=== PATIENT | female | born 1950 | race Caucasian/White ===

== ENCOUNTER → 2016-11-15 | Outpatient (CLI) | payer OTHER | LOC: GMAL 18:00 | PROVIDERS: ATTEND Family Medicine | DX: N39.0 Urinary tract infection, site not specified (principal) ==

== ENCOUNTER → 2017-03-08 | Outpatient (CLI) | payer OTHER | END | disposition home or self-care (01) | LOC: GMAL 11:27 | PROVIDERS: ATTEND Family Medicine | DX: Z00.00 Encounter for general adult medical examination without abnormal findings (principal) ==

== ENCOUNTER → 2017-03-27 | Outpatient (CLI) | payer BC | END | disposition home or self-care (01) | LOC: GMAL 17:19 | PROVIDERS: ATTEND Family Medicine | DX: N39.0 Urinary tract infection, site not specified (principal) ==

== ENCOUNTER → 2017-07-31 | Outpatient (CLI) | payer BC | END | disposition home or self-care (01) | LOC: GMA 15:05 | PROVIDERS: ATTEND Physician Assistant | DX: N39.0 Urinary tract infection, site not specified (principal) ==

== ENCOUNTER → 2017-10-12 | Outpatient (CLI) | payer BC | END | disposition home or self-care (01) | LOC: GMAL 10:58 | PROVIDERS: ATTEND Family Medicine | DX: N39.0 Urinary tract infection, site not specified (principal); E55.9 Vitamin D deficiency, unspecified ==

== ENCOUNTER → 2017-10-20 | Outpatient (CLI) | payer BC | END | disposition home or self-care (01) | LOC: GMAL 11:58 | PROVIDERS: ATTEND Family Medicine | DX: E03.9 Hypothyroidism, unspecified (principal); E34.9 Endocrine disorder, unspecified ==

== ENCOUNTER → 2018-01-25 | Outpatient (CLI) | payer BC, MEDICARE | END | disposition home or self-care (01) | LOC: GMAJS 14:07 | PROVIDERS: ATTEND Physician Assistant | DX: N39.0 Urinary tract infection, site not specified (principal) ==

== ENCOUNTER → 2018-02-26 | Outpatient (CLI) | payer BC, MEDICARE ==
--- NOTE | 2018-02-26 16:55 | MRI ---
EXAM DESCRIPTION: Cervical Spine: MRI. CLINICAL HISTORY: NECK PAIN COMPARISON: CT of the cervical spine and MRI of the cervical spine in 2011. TECHNIQUE: Multiplanar MRI, multiple sequences, non-contrast High-field. FINDINGS: C3-4 disc minimally desiccated but no significant bulging. Grade 1 anterolisthesis. Moderate right facet arthrosis and right uncinate spur resulting in right neural foramen stenosis. Left neuroforamen is patent. Mild canal narrowing. C4-5: Disc desiccation minimal anterior endplate ridging. Right uncinate spur and borderline right neural foraminal stenosis. Mild canal narrowing. Mild left neural foraminal narrowing. Minimal right facet arthrosis. Anterior fusion construct C5-C7. Interbody osseous fusion is almost complete. Bilateral moderate neural foraminal narrowing C5-6. Moderate left neural foraminal narrowing C6-7. Mild neural foraminal narrowing on the right. No canal stenosis. No abnormal signal around the fusion hardware. Normal signal in the remaining discs with no bulging. Disc spaces preserved. Canal and neural foramina are patent. Facets are negative. No scoliosis. Spine is slightly kyphotic C4-C6.. No cord compression or cord edema. Atlantoaxial joint is minimally hypertrophied. Base of the cerebellar tonsils is above the foramen magnum. Paravertebral soft tissues unremarkable. Vertebral bodies are not compressed at any level. Normal marrow signal in the remaining vertebral bodies and the posterior elements. IMPRESSION: 1. Anterior fusion construct at C5-C7 with almost complete interbody osseous fusion. No complications around the hardware. Moderate neural foraminal narrowing bilateral C5-6 and on the left at C6-7. 2. Grade 1 anterolisthesis C3-4. Multifactorial right neural foraminal stenosis. Correlate for right C4 radiculopathy. 3. Borderline right neural foraminal stenosis C4-5. Correlate for right C5 radiculopathy. Electronically signed by: Feliciano Kirkland MD 02/26/2018 4:54 PM CDT
== END ==
LOC: MRI 11:00
PROVIDERS: ATTEND Family Medicine
DX: M50.90 Cervical disc disorder, unspecified, unspecified cervical region (principal); M48.02 Spinal stenosis, cervical region; Z98.1 Arthrodesis status

== ENCOUNTER → 2018-03-28 | Outpatient (CLI) | payer BC, MEDICARE | LOC: GMAL 10:25 | PROVIDERS: ATTEND Family Medicine | DX: D51.3 Other dietary vitamin B12 deficiency anemia (principal); E34.9 Endocrine disorder, unspecified; E55.9 Vitamin D deficiency, unspecified ==

== ENCOUNTER → 2018-05-18 | Outpatient (CLI) | payer BC, MEDICARE | LOC: GMATM 12:34 | PROVIDERS: ATTEND Nurse Practitioner Family | DX: N39.0 Urinary tract infection, site not specified (principal) ==

== ENCOUNTER → 2018-06-18 | Outpatient (CLI) | payer BC, MEDICARE | LOC: GMAL 11:29 | PROVIDERS: ATTEND Family Medicine | DX: N39.0 Urinary tract infection, site not specified (principal) ==

== ENCOUNTER → 2019-09-25 | Outpatient (CLI) | payer BC, MEDICARE ==
--- NOTE | 2019-09-25 15:52 | MRI ---
EXAM DESCRIPTION: Brain w/wo Contrast: Magnetic Resonance Imaging. CLINICAL HISTORY: 69 years Female AGE RELATED COGNITIVE DECLINE COMPARISON: None. TECHNIQUE: Multiplanar, high-field MRI, multiple conventional sequences, without and with 5 kg/mL gadolinium IV contrast. No adverse reactions. Multiple axial diffusion sequences. FINDINGS: An igloo-shaped significantly enhancing extra-axial mass is noted in the midline anterior sagittal region between the anterior frontal, with broad base and enhancing meninges. The mass measures 2.6 cm at the base transversely and 1.7 cm at the apex. AP dimension 2.7 cm and craniocaudal dimension 1.2 cm. Diffusion restriction in the mass. Mass effect on the cribriform plate anteriorly. Meninges also enhances anterior to the mass and to the left underlying the left frontal lobe. Diffuse hyperintense T2 and FLAIR white matter edema in the parasagittal bilateral frontal lobes abutting the mass extending posteriorly to the periventricular frontal horn white matter. Focal absence of the brain substance more likely then edema anteriorly to the proximal left middle cerebral artery demonstrates fluid signal without enhancement on all sequences and no diffusion restriction. Small punctate hyperintense FLAIR and T2 lesions in the subcortical white matter of the frontal lobes. Most of these are at the level of the ventricles with some lesions more superior. White matter edema and punctate lesions show no contrast enhancement or diffusion restriction. Bilateral small punctate hyperintense T2 and FLAIR lesions in the basal ganglia. No hemorrhage, no cerebral edema, no mass-effect. Normal contrast enhancement. Mild hyperintense FLAIR and T2 signal in the courtney more to the left of midline. No abnormal contrast enhancement or diffusion restriction. Normal signal in the cerebellar hemispheres. No hemorrhage, no cerebral edema, no mass-effect. Normal contrast enhancement. Other then diffusion restriction in the tumor, concordance of the diffusion and non-diffusion sequences with no evidence of acute or subacute infarction. Cortical sulci, ventricles, and other CSF spaces, and the subdural spaces are normally configured for patients age. No effacement or displacement. No midline shift. No extra-axial hemorrhage. Normal contrast enhancement. Normal flow signal void in the major vessels of the [place], and the venous sinuses. IACs are symmetric bilaterally. Minimal fluid signal in the base of the left mastoid air cells with normal enhancement. Normal signal in the right air cells. No mass effect in the bilateral cerebellopontine angles. Normal contrast enhancement. Pituitary gland occupies most of the sella. Normal contrast enhancement. Base of the cerebellar tonsils is at the level of the foramen magnum. Dental hardware metallic susceptibility artifact obscures part of the right maxillary antrum. The bony calvarium is intact. IMPRESSION: 1. 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 Minimal enhancement of the adjacent meninges. Diffusion restriction in the tumor. Most likely a meningioma. Less likely to represent a schwannoma of the olfactory nerves or other extra-axial tumor. 2. Bilateral relatively symmetric subcortical white matter edema in the adjacent frontal lobes which extends posteriorly to the periventricular white matter abutting the frontal horns of the lateral ventricles. No enhancement or diffusion restriction. Most likely related to mass effect from the tumor, possibly secondary to subdural venous mass effect and congestion. Cannot exclude atherosclerotic cerebral microvascular disease. Normal flow voids in the included anterior cerebral arteries and branches in the frontal lobes. Multiple bilateral punctate subcortical frontal lobe white matter lesions most likely related to similar process. Question of an old region of encephalomalacia in the left frontal lobe anterior to the left middle cerebral artery, versus a dilated extra-axial CSF space secondary to mass effect. 3. Bilateral punctate basal ganglia lesions most likely related to cerebral microvascular disease. No diffusion restriction hemorrhage or abnormal contrast enhancement. 4. Minimal inflammatory changes in the left mastoid air cells. CRITICAL COMMUNICATION: The critical value was discussed directly by phone by Dr. Kirkland, with Dr. Cholo Breen at approximately 1545 hours, on 09/25/2019. Electronically signed by: Feliciano Kirkland MD 09/25/2019 3:50 PM [facility]
--- NOTE | 2019-09-25 16:20 | MRI ---
EXAM DESCRIPTION: Cervical Spine: MRI. CLINICAL HISTORY: 69 years Female RADICULOPATHY COMPARISON: MRI brain without and with gadolinium IV contrast on this visit. MR cervical spine 26 Feb 2018. TECHNIQUE: Multiplanar, high-field MRI, multiple sequences, non-contrast Cervical spine. FINDINGS: C3-C4: Minimal disc desiccation and disc space loss. Trace anterolisthesis. Right uncinate spur. Hypertrophic changes right facet. Right neural foraminal stenosis. Canal and left neuroforamen patent. Stable since the prior study. C4-C5: Minimal disc desiccation with disc space maintained. Anterior endplate spurs. Right uncinate spur. Moderate right neural foraminal narrowing. Left neuroforamen and canal patent. Facets are negative. Slightly improved right neural foraminal patency from the prior study. C5-C7: Anterior cervical disc fusion with predominantly bony fusion of the disc spaces. Artifact associated with the largest screws bilaterally at C5 and C7 with smaller anterior anchors at C6. Mild canal narrowing at the former disc spaces. Mild bilateral neural foraminal narrowing. No change from the prior study. Normal signal in the C2-3, C7-T1, and T1-T2 discs with no bulging. Disc spaces preserved. Canal and neural foramina are patent. Hypertrophic arthrosis on the right at C7-T1. Other facet joints unremarkable. Spinal alignment mild kyphosis at C4-C6. No cord compression or cord edema. Atlantoaxial joint mild arthrosis and hypertrophy. Base of the cerebellar tonsils is above the foramen magnum. Paravertebral soft tissues are unremarkable. Vertebral bodies are not compressed at any level. Otherwise normal marrow signal in the remaining vertebral bodies and the posterior elements. IMPRESSION: 1. Multiple levels with desiccated disc. Anterior fusion construct C5-C7 with almost complete interbody osseous fusion. Canal and neural foraminal narrowing but no stenosis. 2. Right neural foraminal stenosis at C3-C4 stable since the prior study. Correlate for right C4 radiculopathy. Stable anterolisthesis. 3. Moderate right neural foraminal narrowing C4-C5. Right neuroforamen more patent since the prior study. Electronically signed by: Feliciano Kirkland MD 09/25/2019 4:19 PM [facility]
== END ==
LOC: MRI 08:00
PROVIDERS: ATTEND Family Medicine
DX: R41.81 Age-related cognitive decline (principal); R22.0 Localized swelling, mass and lump, head; G93.89 Other specified disorders of brain; M50.11 Cervical disc disorder with radiculopathy, high cervical region; M50.122 Cervical disc disorder at C5-C6 level with radiculopathy; M50.123 Cervical disc disorder at C6-C7 level with radiculopathy

== ENCOUNTER → 2019-11-21 | Outpatient (CLI) | payer BC, MEDICARE | LOC: GMAL 14:31 | PROVIDERS: ATTEND Family Medicine | DX: D64.9 Anemia, unspecified (principal); E87.6 Hypokalemia ==

== ENCOUNTER → 2020-02-05 | Outpatient (CLI) | payer BC, MEDICARE | LOC: LAB.O 12:38 | PROVIDERS: ATTEND Family Medicine | DX: D64.9 Anemia, unspecified (principal); R30.0 Dysuria ==

== ENCOUNTER → 2020-02-14 | Outpatient (CLI) | payer BC, MEDICARE | LOC: LAB.O 02-10 12:32 | PROVIDERS: ATTEND Family Medicine | DX: D51.9 Vitamin B12 deficiency anemia, unspecified (principal); C71.9 Malignant neoplasm of brain, unspecified ==

== ENCOUNTER → 2020-05-28 | Outpatient (CLI) | payer BC, MEDICARE | LOC: GMAL 15:05 | PROVIDERS: ATTEND Family Medicine | DX: Z87.440 Personal history of urinary (tract) infections (principal) ==

== ENCOUNTER → 2020-06-17 | Outpatient (CLI) | payer BC, MEDICARE | END | disposition home or self-care (01) | LOC: GMAL 10:18 | PROVIDERS: ATTEND Family Medicine | DX: D51.3 Other dietary vitamin B12 deficiency anemia (principal); R53.83 Other fatigue; E55.9 Vitamin D deficiency, unspecified ==

== ENCOUNTER → 2020-09-04 | Outpatient (CLI) | payer BC, MEDICARE | LOC: GMAL 12:39 | PROVIDERS: ATTEND Family Medicine | DX: N30.00 Acute cystitis without hematuria (principal) ==

== ENCOUNTER → 2020-10-02 | Outpatient (CLI) | payer BC, MEDICARE | LOC: GMAL 10:47 | PROVIDERS: ATTEND Family Medicine | DX: E55.9 Vitamin D deficiency, unspecified (principal); E78.2 Mixed hyperlipidemia; Z79.899 Other long term (current) drug therapy; R73.9 Hyperglycemia, unspecified ==

== ENCOUNTER → 2020-11-17 | Outpatient (CLI) | payer BC, MEDICARE | LOC: GMAL 12:47 | PROVIDERS: ATTEND Family Medicine | DX: D64.9 Anemia, unspecified (principal) ==